=== PATIENT | female | born 1985 | race Caucasian/White ===

== ENCOUNTER 2016-10-26 14:22 | Emergency (ER) | payer OTHER | END 2016-10-26 16:10 | disposition home or self-care (01) | LOC: CED 14:22 | DX: T40.1X1A Poisoning by heroin, accidental (unintentional), initial encounter (principal); I10 Essential (primary) hypertension; F32.9 Major depressive disorder, single episode, unspecified; F17.210 Nicotine dependence, cigarettes, uncomplicated; Y92.9 Unspecified place or not applicable | CPT/HCPCS: 99283; J2405 ==